=== PATIENT | male | born 1960 | race Caucasian/White ===

== ENCOUNTER 2021-05-14 07:46 | Outpatient (CLI) | payer OTHER, SELFPAY ==
[2021-05-14 19:07] LABS: Hematocrit 45.8 % (42.0-52.0); Hemoglobin 15.2 g/dL (14.0-18.0); Mean Corpuscular HGB Conc 33.2 g/dl (32-36); Mean Corpuscular Hemoglobin 28.6 pg (26-34); Mean Corpuscular Volume 86.1 fl (80-100); Mean Platelet Volume 10.8 fl (7.4-10.4); Platelet Count Result 236 k/mm3 (150-375); Red Blood Count 5.32 M/mm3 (4.6-6.20); Red Cell Distribution Width 13.1 % (11.5-14.5); White Blood Count 6.2 K/mm3 (4.5-10.0)
[2021-05-14 19:23] LABS: Alanine Aminotransferase 28 U/L (4-50); Albumin Level 4.2 g/dL (3.5-5.1); Alkaline Phosphatase 76 U/L (38-126); Anion Gap 8 mmol/L (8-16); Aspartate Amino Transferase 33 U/L (17-59); Bilirubin,Total 1.2 mg/dL (0.2-1.3); Blood Urea Nitrogen 18 mg/dL (9-20); Calcium 9.9 mg/dL (8.4-10.2); Carbon Dioxide 24 mmol/L (22-30); Chloride 107 mmol/L (98-107); Cholesterol 194 mg/dL (0-200); Estimated Glomerular Filt Rate > 60; Glucose 126 mg/dL (65-110); HDL Direct 37 mg/dL; Potassium 4.7 mmol/L (3.4-5.0); Sodium 139 mmol/L (137-145); Triglycerides 91 mg/dL (<150)
[2021-05-14 19:31] LABS: Hemoglobin A1C 5.9 % (<5.7)
[2021-05-14 19:34] LABS: LDL Cholesterol Direct 133 mg/dL
[2021-05-14 19:51] LABS: Prostate Specific Antigen 0.8 ng/mL (< OR = 4.0)
== END 2021-05-14 07:47 | disposition home or self-care (01) ==
PROVIDERS: PCP Family Medicine; Visit Provider Family Medicine
DX: Z00.00 Encounter for general adult medical examination without abnormal findings (principal); E66.9 Obesity, unspecified
CPT/HCPCS: 36415; 80053; 80061; 83036; 84153; 85027; G0103

== ENCOUNTER 2021-10-19 13:56 | Outpatient (CLI) | payer OTHER, SELFPAY ==
--- NOTE | ~2021-10-19 | XR_ITS ---
XR ankle RT min 3V DATE: 10/19/2021 14:09 INDICATION: Right ankle and foot pain, worse over the last 2 weeks, with swelling TECHNIQUE: 4 views COMPARISON: 08/11/2021 right ankle FINDINGS: Stable chronic dorsal small bony projection at the junction of the anterior process and chiquis ar dome, unchanged since 08/11/2021. No recent fracture or dislocation of the ankle or disruption of the ankle mortise is detected. No per iosteal reaction or bone destruction. Prominent plantar calcaneal enthesopathy, without associated erosive change or periostitis. IMPRESSION: Plantar calcaneal enthesopathy Chronic small bony projection at the dorsal junction of the anterior process and dome of talus Reviewed, dictated and finalized at location A. IMPRESSION: Plantar calcaneal enthesopathy Chronic small bony projection at the dorsal junction of the anterior process an d dome of talus
== END 2021-10-19 13:57 | disposition home or self-care (01) ==
PROVIDERS: PCP Family Medicine; Visit Provider Orthopaedic Surgery
DX: M77.31 Calcaneal spur, right foot (principal)
CPT/HCPCS: 73610

== ENCOUNTER 2022-02-23 07:32 | Outpatient (CLI) | payer OTHER, SELFPAY ==
[2022-02-23 20:39] LABS: Hemoglobin A1C 5.8 % (<5.7)
== END 2022-02-23 07:33 | disposition home or self-care (01) ==
PROVIDERS: PCP Family Medicine; Visit Provider Family Medicine
DX: R73.03 Prediabetes (principal)
CPT/HCPCS: 36415; 83036

== ENCOUNTER 2022-06-23 07:49 | Outpatient (CLI) | payer OTHER, SELFPAY ==
[2022-06-23 18:45] LABS: Hematocrit 46.1 % (42.0-52.0); Hemoglobin 14.7 g/dL (14.0-18.0); Mean Corpuscular HGB Conc 31.9 g/dl (32-36); Mean Corpuscular Hemoglobin 28.2 pg (26-34); Mean Corpuscular Volume 88.5 fl (80-100); Mean Platelet Volume 10.8 fl (7.4-10.4); Platelet Count Result 214 k/mm3 (150-375); Red Blood Count 5.21 M/mm3 (4.6-6.20); Red Cell Distribution Width 13.1 % (11.5-14.5); White Blood Count 5.4 K/mm3 (4.5-10.0)
[2022-06-23 19:12] LABS: Alanine Aminotransferase 27 U/L (6-50); Albumin Level 4.3 g/dL (3.5-5.1); Alkaline Phosphatase 81 U/L (38-126); Anion Gap 6 mmol/L (8-16); Aspartate Amino Transferase 46 U/L (17-59); Bilirubin,Total 0.9 mg/dL (0.2-1.3); Blood Urea Nitrogen 13 mg/dL (9-20); Calcium 9.1 mg/dL (8.4-10.2); Carbon Dioxide 29 mmol/L (22-30); Chloride 104 mmol/L (98-107); Cholesterol 196 mg/dL (0-200); Estimated Glomerular Filt Rate > 60; Glucose 108 mg/dL (65-110); HDL Direct 31 mg/dL; Potassium 4.6 mmol/L (3.4-5.0); Sodium 139 mmol/L (137-145); Triglycerides 111 mg/dL (<150)
[2022-06-23 19:23] LABS: LDL Cholesterol Direct 125 mg/dL
[2022-06-23 19:26] LABS: Hemoglobin A1C 5.7 % (<5.7)
[2022-06-23 19:41] LABS: Prostate Specific Antigen 1.2 ng/mL (< OR = 4.0)
== END 2022-06-23 07:50 | disposition home or self-care (01) ==
LOC: ANHBWCLAB 07:50
PROVIDERS: PCP Family Medicine; Visit Provider Family Medicine
DX: Z00.00 Encounter for general adult medical examination without abnormal findings (principal); R73.03 Prediabetes; N52.9 Male erectile dysfunction, unspecified; Z12.5 Encounter for screening for malignant neoplasm of prostate
CPT/HCPCS: 36415; 80053; 80061; 83036; 84153; 85027; G0103

== ENCOUNTER 2022-07-14 16:22 | Outpatient (CLI) | payer OTHER, SELFPAY ==
--- NOTE | ~2022-07-14 | US_ITS ---
EXAMINATION: US venous doppler [facility] DATE: 07/14/2022 16:58 INDICATION: Varicose veins the left lower extremity presenting with left lower limb pain and erythema and localized superficial swelling, mass or lump medial to the left knee. TECHNIQUE: Grayscale ultrasound images without and with compression and Doppler ultrasound images of the left lower extremity veins were obtained. COMPARISON: None. FINDINGS: The visualized portions of left common femoral vein, profunda (deep) femoral vein, femoral vein, popl iteal vein, peroneal veins, posterior tibial veins, gastrocnemius vein and greater saphenous vein out flow are patent. There is a noncompressible thrombosed superficial varicose vein position within the subcutaneous fat at the region of concern at the medial aspect of the left knee. IMPRESSION: 1. No deep venous thrombosis in the left lower limb. 2. Thrombosed superficial varicose vein at the medial aspect of the left knee which given the provide d history of associated pain and erythema suggests possibility of thrombophlebitis. Reviewed, dictated and finalized at location A. IMPRESSION: 1. No deep venous thrombosis in the left lower limb. 2. Thrombosed superficial varicose vein at the medial aspect of the left knee [facility] given the provided history of associated pain and erythema suggests possib ility of thrombophlebitis.
== END 2022-07-14 16:23 | disposition home or self-care (01) ==
LOC: ANHIMG 16:23
PROVIDERS: PCP Family Medicine; Visit Provider Family Medicine
DX: I83.812 Varicose veins of left lower extremity with pain (principal)
CPT/HCPCS: 93971

== ENCOUNTER 2023-07-04 15:27 | Outpatient (CLI) | payer OTHER, SELFPAY ==
[2023-07-04 20:05] LABS: Hematocrit 45.3 % (42.0-52.0); Hemoglobin 14.8 g/dL (14.0-18.0); Mean Corpuscular HGB Conc 32.7 g/dl (32-36); Mean Corpuscular Hemoglobin 28.7 pg (26-34); Mean Platelet Volume 11.2 fl (7.4-10.4); Platelet Count Result 215 k/mm3 (150-375); Red Blood Count 5.15 M/mm3 (4.6-6.20); Red Cell Distribution Width 13.1 % (11.5-14.5); White Blood Count 6.2 K/mm3 (4.5-10.0)
[2023-07-04 21:21] LABS: Alanine Aminotransferase 23 U/L (6-50); Albumin Level 4.2 g/dL (3.5-5.1); Alkaline Phosphatase 64 U/L (38-126); Anion Gap 6 mmol/L (4-12); Aspartate Amino Transferase 42 U/L (17-59); Blood Urea Nitrogen 19 mg/dL (9-20); Calcium 9.5 mg/dL (8.4-10.2); Carbon Dioxide 26 mmol/L (22-30); Chloride 105 mmol/L (98-107); Estimated Glomerular Filt Rate > 60; Glucose 115 mg/dL (65-110); Potassium 4.3 mmol/L (3.4-5.0); Sodium 137 mmol/L (137-145)
[2023-07-04 22:53] LABS: Hemoglobin A1C 5.4 % (<5.7)
== END 2023-07-04 15:28 | disposition home or self-care (01) ==
LOC: ANHBWCLAB 15:29
PROVIDERS: PCP Family Medicine; Visit Provider Family Medicine
DX: Z00.00 Encounter for general adult medical examination without abnormal findings (principal); E66.9 Obesity, unspecified; I10 Essential (primary) hypertension; I83.812 Varicose veins of left lower extremity with pain; K58.9 Irritable bowel syndrome, unspecified; N52.9 Male erectile dysfunction, unspecified; R73.03 Prediabetes
CPT/HCPCS: 36415; 80053; 83036; 85027

== ENCOUNTER 2024-01-04 15:45 | Outpatient (CLI) | payer OTHER, SELFPAY ==
[2024-01-04 18:36] LABS: Basophils Absolute Auto 0.1 K/mm3 (0.0-0.1); Basophils Percent Auto 0.7 % (0.2-1.2); Eosinophils Absolute Auto 0.1 K/mm3 (0-0.3); Eosinophils Percent Auto 1.6 % (0-4.4); Hematocrit 44.5 % (42.0-52.0); Immature Granulocyte Absolute 0.02 K/mm3 (0.00-0.031); Immature Granulocyte Percent A 0.3 % (0-0.5); Lymphocytes Absolute Auto 1.94 K/mm3 (0.9-3.2); Lymphocytes Percent Auto 27.9 % (18.3-44.2); Mean Corpuscular HGB Conc 33.7 g/dl (32-36); Mean Corpuscular Hemoglobin 29.8 pg (26-34); Mean Corpuscular Volume 88.3 fl (80-100); Mean Platelet Volume 11.4 fl (7.4-10.4); Monocytes Absolute Auto 0.7 K/mm3 (0.1-0.6); Monocytes Percent Auto 9.8 % (2.6-8.5); Neutrophils Absolute Auto 4.2 K/mm3 (1.3-6.7); Neutrophils Percent Auto 59.7 % (45.5-73.1); Platelet Count Result 218 k/mm3 (150-375); Red Blood Count 5.04 M/mm3 (4.6-6.20); Red Cell Distribution Width 13.2 % (11.5-14.5)
[2024-01-04 19:02] LABS: Alanine Aminotransferase 22 U/L (6-50); Albumin Level 4.1 g/dL (3.5-5.1); Alkaline Phosphatase 72 U/L (38-126); Anion Gap 6 mmol/L (4-12); Aspartate Amino Transferase 43 U/L (17-59); Bilirubin,Total 1.8 mg/dL (0.2-1.3); Blood Urea Nitrogen 18 mg/dL (9-20); Carbon Dioxide 25 mmol/L (22-30); Chloride 107 mmol/L (98-107); Cholesterol 190 mg/dL (0-200); Estimated Glomerular Filt Rate > 60; Glucose 88 mg/dL (65-110); HDL Direct 37 mg/dL; Magnesium 2.2 mg/dL (1.6-2.3); Potassium 4.7 mmol/L (3.4-5.0); Sodium 138 mmol/L (137-145); Triglycerides 188 mg/dL (<150)
[2024-01-04 19:13] LABS: LDL Cholesterol Direct 106 mg/dL
[2024-01-04 20:55] LABS: Hemoglobin A1C 5.4 % (<5.7)
== END 2024-01-04 15:46 | disposition home or self-care (01) ==
LOC: ANHBWCLAB 15:46
PROVIDERS: PCP Nurse Practitioner Adult Health; Visit Provider Nurse Practitioner Adult Health
DX: I10 Essential (primary) hypertension (principal); R73.03 Prediabetes
CPT/HCPCS: 36415; 80053; 80061; 83036; 83735; 85025

== ENCOUNTER 2025-01-09 16:21 | Outpatient (CLI) | payer OTHER, SELFPAY ==
[2025-01-09 17:12] LABS: Hematocrit 43.2 % (42.0-52.0); Hemoglobin 14.8 g/dL (14.0-18.0); Immature Granulocyte Percent A 0.6 % (0-0.5); Lymphocytes Absolute Auto 2.00 K/mm3 (0.9-3.2); Mean Corpuscular HGB Conc 34.3 g/dl (32-36); Mean Corpuscular Hemoglobin 29.1 pg (26-34); Mean Corpuscular Volume 84.9 fl (80-100); Nucleated Red Blood Cells Absolute Auto 0.000 K/mm3 (0.0-0.012); Nucleated Red Blood Cells Perc 0.0 % (0.0-0.2); Platelet Count Result 202 k/mm3 (150-375); Red Blood Count 5.09 M/mm3 (4.6-6.20); White Blood Count 6.5 K/mm3 (4.5-10.0)
[2025-01-09 17:28] LABS: Alanine Aminotransferase 22 U/L (6-50); Albumin Level 4.3 g/dL (3.5-5.1); Alkaline Phosphatase 67 U/L (38-126); Anion Gap 9 mmol/L (4-12); Aspartate Amino Transferase 28 U/L (17-59); Bilirubin,Total 1.4 mg/dL (0.2-1.3); Blood Urea Nitrogen 18 mg/dL (9-20); Calcium 9.1 mg/dL (8.4-10.2); Carbon Dioxide 22 mmol/L (22-30); Chloride 105 mmol/L (98-107); Estimated Glomerular Filt Rate > 60; Glucose 112 mg/dL (65-110); Magnesium 2.0 mg/dL (1.6-2.3); Potassium 4.4 mmol/L (3.4-5.0); Sodium 136 mmol/L (137-145); Total Protein 7.5 g/dL (6.3-8.2)
--- OUTSIDE RECORDS SUMMARY | 2025-01-09 17:46 | XMS_ITS | Clinical Summary ---
Author Organization [facility] Address [address] [place] [address] Care Team Providers Care Chart Clerk Name Role Phone Eris Carrington MD Primary Care Provider [phone] Allergies No known active allergies Medications No known medications Social History Tobacco Use Types Packs/Day Years Used Date Smoking Tobacco: Never Sex and Gender Information Value Date Recorded Sex Assigned at Not on file Legal Sex Male 1:25 AM CDT Gender Identity Not on file Sexual Orientation Not on file Last Filed Vital Signs Vital Sign Reading Time Taken Comments Blood Pressure 168/94 01/22/2022 7:56 PM CDT Pulse 63 01/22/2022 7:56 PM CDT Temperature 36.3 C (97.4 F) 01/22/2022 7:56 PM CDT Respiratory Rate 20 01/22/2022 7:56 PM CDT Oxygen Saturation 97% 01/22/2022 7:56 PM CDT Inhaled Oxygen Concentration - - Weight 115.7 kg (255 lb) 01/22/2022 7:56 PM CDT Height 186.7 cm (6' 1.5) 01/22/2022 7:56 PM CDT Body Mass Index 33.19 01/22/2022 7:56 PM CDT Plan of Treatment Health Maintenance Due Date Last Done Comments Colorectal Cancer Screening Colonoscopy (10 Years) 1961 Annual Physical 1964 Hepatitis C 08/29/1979 DTaP, Tdap and Td Vaccines ( 1 - Tdap) 1980 Pneumococcal Vaccine: 50+ Ye ars (1 of 1 - PCV) 08/29/2011 Zoster Vaccines (1 of 2) 08/29/2011 COVID-19 Vaccine ( - 2023-2 5 season) 2024 Influenza Adult (#1) 2024 RSV Immunization or 60+ Years (1 - 1-dose 75+ series) 2036 Meningococcal B Vaccine Aged Out No l onger eligible based on patient's age to complete this topic Meningococcal Vaccine Aged Out No celso ankur eligible based on patient's age to complete this topic RSV Immunizations Under 20 Months Aged Out No longer eligible based on patient's age to complete this topic Insurance [employer] [facility] Care Teams Chart Clerk Relationship Specialty Start Date End Date Eris Carrington MD [address] [place] [address] PCP - General FAMILY PRACTICE 01/22/22
--- OUTSIDE RECORDS SUMMARY | 2025-01-09 17:47 | XMS_ITS | Clinical Summary ---
Author Organization [facility] [employer] Address [address] [place] [address] Care Team Providers Care Nascar Driver Name Role Phone Asael Doan MD Primary Care Provider [phone] Pretty MAURICE MD, Isac Unavailable [phone] Source Comments [facility] [employer],non-owned Affiliates and Associated Physician Practices is amultiple site organization consisting of ambulatory clinics and hospital sitesin [place], [place], [place] and [place]. This disclosure is being madepursuant to the Care Everywhere program and may not contain all information available regarding this patient. Last updated 17.[facility] [employer] Allergies No known active allergies Medications * Be aware that medications may not be up to date on this document. Alwaysverify current medications with the patient. hydrocodone-teri taminophen (NORCO) 7.5-325 MG tablet Take 1 Tab by mouth every 4 hours as needed for Pain. 30 Tab 0 3 Active Additional Information Patient not taking.Reported on 08/13/2015 traMADol (ULTRAM) 50 MG tablet Take 1 Tab by mouth every 6 hours as needed for Pain. 50 Tab 1 4 Active Additional Information Patient not taking.Reported on 08/13/2015 naproxen (NAPROSYN) 500 MG tablet Take 1 Tab by mouth 2 times daily as needed for Pain. 60 Tab 1 4 Active Additional Information Patient not taking.Reported on 08/13/2015 methylPREDNISol one (MEDROL DOSEPAK) 4 MG tablet Take by mouth as directed. 1 Packet 0 4 Active Additional Information Patient not taking.Reported on 08/13/2015 tiZANidine (ZANAFLEX) 4 MG tablet Take 1 Tab by mouth every 8 hours as needed for Muscle Spasms. 50 Tab 1 4 Active Additional Information Patient not taking.Reported on 08/13/2015 ibuprofen (MOTRIN) 800 MG tablet Take 1 Tab by mouth every 6 hours as needed for Pain 90 Tab 2 6 Active cyclobenzaprine (FLEXERIL) 10 MG tablet Take 1 Tab by mouth 3 times daily 50 Tab 1 6 Active Active Problems Problem Noted Date Diagnosed Date Rotator cuff tendinitis 08/13/2015 DDD (degenerative disc disease), cervical 2013 Cervicalgia 11/21/2013 Cervical radicular pain 11/21/2013 Social History Tobacco Use Types Packs/Day Years Used Date Smoking Tobacco: Unknown Alcohol Use Standard Drinks/Week Comments Yes 0 (1 standard drink = 0.6 oz pur e alcohol) Sex and Gender Information Value Date Recorded Sex Assigned at Not on file Legal Sex Male 8:15 AM CDT Gender Identity Not on file Sexual Orientation Not on file Last Filed Vital Signs Vital Sign Reading Time Taken Comments Blood Pressure 147/93 01/23/2013 8:45 AM CDT Pulse 59 01/23/2013 8:45 AM CDT Temperature 35.6 C (96 F) 01/23/2013 8:45 AM CDT Respiratory Rate 18 01/23/2013 8:45 AM CDT Oxygen Saturation 97% 01/23/2013 8:45 AM CDT Inhaled Oxygen Concentration - - Weight 108.1 kg (238 lb 6.4 oz) 01/23/2013 5:59 AM CDT Height 188 cm (6' 2) 01/23/2013 5:59 AM CDT Body Mass Index 30.61 01/23/2013 5:59 AM CDT Plan of Treatment Health Maintenance Due Date Last Done Comments COLOGUARD (AGES 45-75) - COL ON CA SCREENING 1961 COLON MONITORING 1961 COLONOSCOPY - COLON CA SCREENING 1961 CT COLONOGRAPHY - COLON CA SCREENING 1961 Colorectal Cancer Screening 1961 FIT - COLON CA SCREENING 1961 FLEX SIG - COLON CA SCREENING 1961 LIPID TESTING 1961 HIV SCREENING 1976 HEPATITIS C SCREENING 08/24/1979 DTAP/TDAP/TD VACCINES (1 - Tdap) 1980 PNEUMOCOCCAL VACCINE 50+ (1 of 1 - PCV) 08/29/2011 ZOSTER VACCINE (1 of 2) 08/29/2011 DEPRESSION SCREENING 03/28/2024 COVID-19 VACCINE (1 - 2023-2 5 season) 2024 INFLUENZA VACCINE (#1) 2024 Respiratory Syncytial Virus (RSV) Vaccine Pt: or over 60 yrs (1 - 1-dose 75+ series) 2036 HEPATITIS B VACCINE Aged Out No longe r eligible based on patient's age to complete this topic HIB VACCINE Aged Out No longer eligi ble based on patient's age to complete this topic HPV VACCINE Aged Out No longer eligi ble based on patient's age to complete this topic MENINGOCOCCAL (Group B) VACC INE SHARED DECISION-MAKING Aged Out No longer eligibl e based on patient's age to complete this topic MENINGOCOCCAL GROUPS A/C/Y/W VACCINE Aged Out No longer eligible b ased on patient's age to complete this topic Insurance [employer] Care Teams Nascar Driver Relationship Specialty Start Date End Date Asael Doan MD [address] [id number] [place] [address] PCP - General Internal Medicine 12/04/12 [place] [id number] [address] Orthopedic Surgery 12/04/12
[2025-01-09 18:02] LABS: MALB Creatinine Ratio < 5.6 mg/g (0-30)
[2025-01-09 18:21] LABS: Vitamin B12 335.0 pg/mL (239-931)
[2025-01-09 18:34] LABS: Hemoglobin A1C 5.5 % (<5.7)
== END 2025-01-09 16:22 | disposition home or self-care (01) ==
LOC: ANHLAB 16:23
PROVIDERS: PCP Family Medicine; Visit Provider Family Medicine
DX: Z00.00 Encounter for general adult medical examination without abnormal findings (principal); I10 Essential (primary) hypertension; R73.03 Prediabetes; N52.9 Male erectile dysfunction, unspecified; I83.812 Varicose veins of left lower extremity with pain; E66.9 Obesity, unspecified
CPT/HCPCS: 36415; 80053; 82043; 82306; 82607; 83036; 83735; 85025